=== PATIENT | male | born 1960 | race Caucasian/White ===

== ENCOUNTER 2018-08-27 09:36 | Outpatient (CLI) | payer MEDICARE, OTHER ==
[2018-08-27 10:27] LABS: BASOPHILS # (AUTO) 0.1 X10'3 (0-0.2); BASOPHILS % (AUTO) 0.7 % (0-1); EOSINOPHILS # (AUTO) 0.3 X10'3 (0-0.9); EOSINOPHILS % (AUTO) 3.8 % (0-6); HEMATOCRIT 44.3 % (42.0-52.0); HEMOGLOBIN 15.5 g/dl (14.0-17.9); LYMPHOCYTES # (AUTO) 2.4 X10'3 (1.1-4.8); LYMPHOCYTES % (AUTO) 32.1 % (21-51); MEAN CORPUSCULAR HEMOGLOBIN 31.4 PG (27.0-31.0); MEAN CORPUSCULAR VOLUME 89.7 FL (78-98); MEAN PLATELET VOLUME 8.3 FL (7.4-10.4); MONOCYTES # (AUTO) 0.6 X10'3 (0-0.9); MONOCYTES % (AUTO) 8.3 % (2-12); NEUTROPHILS % (AUTO) 55.1 % (42-75); PLATELET COUNT 298 X10'3 (140-440); RED BLOOD COUNT 4.93 X10'6 (4.70-6.10); RED CELL DISTRIBUTION WIDTH 12.5 % (11.5-14.5); WHITE BLOOD COUNT 7.4 X10'3 (4.5-11.0)
[2018-08-27 10:28] LABS: COLOR,URINE YELLOW (Yellow); GLUCOSE, URINE NEGATIVE (Neg); KETONES,URINE NEGATIVE (Neg); LEUKOCYTE ESTERASE ,URINE NEGATIVE (Neg); NITRITES, URINE NEGATIVE (Neg); OCCULT BLOOD,URINE NEGATIVE (Neg); PH,URINE 5.5 (4.8-8.0); PROTEIN,URINE NEGATIVE (Neg); UROBILINOGEN,URINE 0.2 E.U/dL (0.2-1.0)
[2018-08-27 10:40] LABS: CLARITY,URINE CLEAR (Clear)
[2018-08-27 10:41] LABS: UA COLLECTION TYPE CLN CATCH MIDSTREAM
[2018-08-27 10:46] LABS: ALANINE AMINOTRANSFERASE 33 U/L (12-78); ALBUMIN 3.5 G/DL (3.4-5.0); ALBUMIN/GLOBULIN RATIO 0.9 (1.1-1.5); ALKALINE PHOSPHATASE 74 IU/L (46-116); ANION GAP 7 (8-16); ASPARTATE AMINO TRANSFERASE 12 U/L (10-37); BILIRUBIN,TOTAL 0.6 MG/DL (0.1-1.0); BLOOD UREA NITROGEN 16 MG/DL (7-18); BUN/CREATININE RATIO 18.8 (5.4-32.0); CALCIUM 9.4 MG/DL (8.5-10.1); CHLORIDE 103 MMOL/L (99-107); CHOL/HDL RATIO 6.7 (0.00-4.99); CHOLESTEROL 236 MG/DL (0-200); CREATININE 0.85 MG/DL (0.60-1.10); GLUCOSE 95 MG/DL (70-104); HDL CHOLESTEROL 35 MG/DL (35-60); LDL CHOLESTEROL 158 MG/DL (50-100); POTASSIUM 3.7 MMOL/L (3.5-5.1); SODIUM 140 MMOL/L (135-145); TOTAL CARBON DIOXIDE 30.1 MMOL/L (24-32); TOTAL PROTEIN 7.5 G/DL (6.4-8.2); TRIGLYCERIDES 244 MG/DL (20-135); eGFR > 90 ML/MIN
== END 2018-08-27 23:59 | disposition home or self-care (01) ==
LOC: LAB 09:36
PROVIDERS: ATTEND Family Medicine
DX: R60.9 Edema, unspecified (principal); Z00.00 Encounter for general adult medical examination without abnormal findings; Z87.891 Personal history of nicotine dependence; E78.5 Hyperlipidemia, unspecified
CPT/HCPCS: 36415; 80053; 80061; 81003; 82306; 84439; 84443; 85025

== ENCOUNTER 2018-11-06 11:36 | Day surgery (SDC) | payer MEDICARE, OTHER ==
[2018-11-05 10:18] LABS: BASOPHILS % (AUTO) 0.6 % (0-1); EOSINOPHILS # (AUTO) 0.2 X10'3 (0-0.9); EOSINOPHILS % (AUTO) 3.7 % (0-6); HEMATOCRIT 43.3 % (42.0-52.0); HEMOGLOBIN 14.8 g/dl (14.0-17.9); LYMPHOCYTES # (AUTO) 2.2 X10'3 (1.1-4.8); LYMPHOCYTES % (AUTO) 33.9 % (21-51); MEAN CORPUSCULAR HEMOGLOBIN 30.5 PG (27.0-31.0); MEAN CORPUSCULAR HGB CONC 34.3 % (33.0-36.5); MONOCYTES # (AUTO) 0.6 X10'3 (0-0.9); MONOCYTES % (AUTO) 9.1 % (2-12); NEUTROPHILS # (AUTO) 3.4 X10'3 (1.8-7.7); NEUTROPHILS % (AUTO) 52.7 % (42-75); PLATELET COUNT 283 X10'3 (140-440); RED BLOOD COUNT 4.87 X10'6 (4.70-6.10); WHITE BLOOD COUNT 6.4 X10'3 (4.5-11.0)
[2018-11-05 10:28] LABS: ALBUMIN 3.5 G/DL (3.4-5.0); ANION GAP 6 (8-16); BLOOD UREA NITROGEN 10 MG/DL (7-18); BUN/CREATININE RATIO 12.5 (5.4-32.0); CALCIUM 9.8 MG/DL (8.5-10.1); CHLORIDE 104 MMOL/L (99-107); GLUCOSE 103 MG/DL (70-104); SODIUM 141 MMOL/L (135-145); TOTAL CARBON DIOXIDE 31.2 MMOL/L (24-32); eGFR > 90 ML/MIN
[2018-11-05 10:49] LABS: PARTIAL THROMBOPLASTIN TIME 25 SECONDS (22-32)
[2018-11-05 11:04] LABS: PROTHROMBIN TIME 9.9 SECONDS (9.0-12.0)
[~2018-11-06] VITALS: Ht 182.9 cm; Wt 159.7 kg
[2018-11-06] VITALS (15 sets, daily range): BP systolic 121–156; BP diastolic 71–102
[2018-11-06] MEDS ORDERED: LORazepam 0.5 MG tablet PO PRN (11:55)
[2018-11-06] MEDS ORDERED: diphenhydrAMINE 25mg capsule PO PRN (11:55)
[2018-11-06] MEDS ORDERED: ATOR20TA PO (12:07)
[2018-11-06] MEDS ORDERED: ZOLP5TAB8 PO (12:07)
[2018-11-06] MEDS ORDERED: FURO-150 PO (12:07)
[2018-11-06] MEDS: normal saline 1000ml 1,000 ML IV SCH ×3 (13:18→17:58)
[2018-11-06] MEDS ORDERED: LIDOcaine/PRILOcaine 5gm cream TP ONE (13:40)
[2018-11-06] MEDS ORDERED: nitroGLYCERIN-Tridil 50MG/D5W 250 ML IV ONE (13:57)
[2018-11-06] MEDS ORDERED: verapamil 2.5 mg/ml inj IV ONE (13:57)
[2018-11-06] MEDS ORDERED: LIDOcaine 1% (10mg/ml)w/preservative injection 20ml MDV ONE (13:58)
[2018-11-06] MEDS ORDERED: iohexol 350MG/ML 100ml bottle IV ONE (13:58)
[2018-11-06] MEDS ORDERED: fentaNYL/PF 50MCG/1 ML 2ML syringe ONE (13:58)
[2018-11-06] MEDS ORDERED: midazolam 2 mg/2 ml injection ONE (13:58)
[2018-11-06] MEDS ORDERED: iohexol 350 MG/ML 50ML vial IV ONE (13:58)
[2018-11-06] MEDS ORDERED: heparin 1,000unit/ml 10ml vial 10 ML ONE (13:58)
[2018-11-06] MEDS ORDERED: zolpidem 5mg tablet PO PRN (15:45)
[2018-11-06] MEDS ORDERED: HYDROcodone/acetaminophen 10/325mg tab PO PRN (16:10)
[2018-11-06 16:41] LABS: ISTAT HGB ART 12.9 g/dl (14.0-18.0); ISTAT Hct ART 38 %PCV (42-52); ISTAT O2 SATURATION ARTERIAL 94 % (95-98); ISTAT SOURCE ART
[2018-11-06 16:41] LABS: ISTAT Hct MIX 38 %PCV (42-52); ISTAT O2 SATURATION MIX VENOUS 68 % (60-80); ISTAT SOURCE MIX
[2018-11-06 17:28] LABS: CHOLESTEROL 179 MG/DL (0-200); CREATININE 0.75 MG/DL (0.60-1.10); HDL CHOLESTEROL 30 MG/DL (35-60); LDL CHOLESTEROL 117 MG/DL (50-100); TRIGLYCERIDES 172 MG/DL (20-135); eGFR > 90 ML/MIN
[2018-11-07 02:00] VITALS: BP 143/80
[2018-11-07 06:19] LABS: ALANINE AMINOTRANSFERASE 36 U/L (12-78); ALBUMIN/GLOBULIN RATIO 0.8 (1.1-1.5); ALKALINE PHOSPHATASE 77 IU/L (46-116); ANION GAP 8 (8-16); ASPARTATE AMINO TRANSFERASE 14 U/L (10-37); BILIRUBIN,TOTAL 0.5 MG/DL (0.1-1.0); BLOOD UREA NITROGEN 9 MG/DL (7-18); CALCIUM 8.9 MG/DL (8.5-10.1); CHLORIDE 105 MMOL/L (99-107); CREATININE 0.75 MG/DL (0.60-1.10); GLUCOSE 120 MG/DL (70-104); POTASSIUM 3.7 MMOL/L (3.5-5.1); SODIUM 142 MMOL/L (135-145); TOTAL CARBON DIOXIDE 28.9 MMOL/L (24-32); TOTAL PROTEIN 6.8 G/DL (6.4-8.2); eGFR > 90 ML/MIN
[2018-11-07 06:23] LABS: BASOPHILS % (AUTO) 0.3 % (0-1); EOSINOPHILS # (AUTO) 0.3 X10'3 (0-0.9); EOSINOPHILS % (AUTO) 3.4 % (0-6); HEMATOCRIT 40.1 % (42.0-52.0); HEMOGLOBIN 13.9 g/dl (14.0-17.9); LYMPHOCYTES # (AUTO) 1.8 X10'3 (1.1-4.8); LYMPHOCYTES % (AUTO) 21.7 % (21-51); MEAN CORPUSCULAR HEMOGLOBIN 30.8 PG (27.0-31.0); MEAN CORPUSCULAR HGB CONC 34.7 % (33.0-36.5); MEAN CORPUSCULAR VOLUME 88.7 FL (78-98); MEAN PLATELET VOLUME 8.1 FL (7.4-10.4); MONOCYTES # (AUTO) 0.7 X10'3 (0-0.9); MONOCYTES % (AUTO) 8.2 % (2-12); NEUTROPHILS # (AUTO) 5.5 X10'3 (1.8-7.7); NEUTROPHILS % (AUTO) 66.4 % (42-75); PLATELET COUNT 249 X10'3 (140-440); RED BLOOD COUNT 4.52 X10'6 (4.70-6.10); RED CELL DISTRIBUTION WIDTH 12.9 % (11.5-14.5); WHITE BLOOD COUNT 8.3 X10'3 (4.5-11.0)
[2018-11-07 07:00] VITALS: BP 151/84
[2018-11-07] MEDS ORDERED: atorvastatin 20mg tablet PO SCH (08:00)
[2018-11-07] MEDS ORDERED: furosemide 20MG tablet PO SCH (08:00)
[2018-11-07 11:00] VITALS: BP 138/88
== END 2018-11-07 12:05 | disposition home or self-care (01) ==
LOC: SSTAY O 11:36 → MED 3N 16:14 → SSTAY O 11-07 12:05
PROVIDERS: ATTEND Internal Medicine Cardiovascular Disease
DX: I25.110 Atherosclerotic heart disease of native coronary artery with unstable angina pectoris (principal); E78.5 Hyperlipidemia, unspecified; E66.01 Morbid (severe) obesity due to excess calories; Z87.891 Personal history of nicotine dependence; Z98.890 Other specified postprocedural states
CPT/HCPCS: 36415; 80048; 80053; 80061; 82565; 82803; 85014; 85025; 85610; 85730; 93005; 93460; 99152; 99153; A6257; J1644; J2001; J2250; J3010; J7030; Q0163; Q9967; A4620; C1769; G0378; J3490

== ENCOUNTER 2019-04-08 12:30 | Outpatient (CLI) | payer OTHER, MEDICARE ==
[~2019-04-08 12:30] MED LIST: ATOR20TA PO; FURO-150 PO; ZOLP5TAB8 PO
== END 2019-04-08 23:59 | disposition home or self-care (01) ==
LOC: RAD 12:30
PROVIDERS: ATTEND Family Medicine
DX: M25.461 Effusion, right knee (principal); M22.41 Chondromalacia patellae, right knee; M54.5 Low back pain; Z87.891 Personal history of nicotine dependence
CPT/HCPCS: 73721

== ENCOUNTER → 2020-12-12 | Outpatient (CLI) | payer BC, MEDICARE ==
[~2020-12-12] MED LIST changes: +HYDR-3964 PO; +ONDA4TAB6 PO
[2020-12-12 09:12] LABS: BASOPHILS % (AUTO) 0.7 % (0-1); EOSINOPHILS # (AUTO) 0.2 X10'3 (0-0.9); EOSINOPHILS % (AUTO) 3.1 % (0-6); HEMATOCRIT 43.5 % (42.0-52.0); HEMOGLOBIN 14.9 g/dl (14.0-17.9); LYMPHOCYTES # (AUTO) 2.3 X10'3 (1.1-4.8); MEAN CORPUSCULAR HEMOGLOBIN 30.9 PG (27.0-31.0); MEAN CORPUSCULAR HGB CONC 34.4 g/dL (33.0-36.5); MONOCYTES # (AUTO) 0.7 X10'3 (0-0.9); MONOCYTES % (AUTO) 10.4 % (2-12); NEUTROPHILS # (AUTO) 3.2 X10'3 (1.8-7.7); NEUTROPHILS % (AUTO) 49.8 % (42-75); PLATELET COUNT 258 X10'3 (140-440); RED BLOOD COUNT 4.83 X10'6 (4.70-6.10); RED CELL DISTRIBUTION WIDTH 12.9 % (11.5-14.5); WHITE BLOOD COUNT 6.4 X10'3 (4.5-11.0)
[2020-12-12 09:37] LABS: ALANINE AMINOTRANSFERASE 42 U/L (12-78); ALBUMIN 3.4 G/DL (3.4-5.0); ALBUMIN/GLOBULIN RATIO 0.9 (1.1-1.5); ALKALINE PHOSPHATASE 88 IU/L (46-116); ANION GAP 6 (8-16); ASPARTATE AMINO TRANSFERASE 15 U/L (10-37); BILIRUBIN,TOTAL 0.6 MG/DL (0.1-1.0); BLOOD UREA NITROGEN 12 MG/DL (7-18); CALCIUM 9.6 MG/DL (8.5-10.1); CHLORIDE 107 MMOL/L (99-107); CHOL/HDL RATIO 6.1 (0.00-4.99); CHOLESTEROL 226 MG/DL (0-200); GLUCOSE 101 MG/DL (70-104); HDL CHOLESTEROL 37 MG/DL (35-60); LDL CHOLESTEROL 150 MG/DL (50-100); POTASSIUM 3.8 MMOL/L (3.5-5.1); SODIUM 143 MMOL/L (135-145); TOTAL CARBON DIOXIDE 29.6 MMOL/L (24-32); TOTAL PROTEIN 7.4 G/DL (6.4-8.2); TRIGLYCERIDES 224 MG/DL (20-135); eGFR > 90 ML/MIN
== END | disposition home or self-care (01) ==
LOC: LAB 08:09
PROVIDERS: ATTEND Family Medicine
DX: E55.9 Vitamin D deficiency, unspecified (principal); E34.9 Endocrine disorder, unspecified; D64.9 Anemia, unspecified; R53.83 Other fatigue; R73.03 Prediabetes; E78.5 Hyperlipidemia, unspecified; E07.9 Disorder of thyroid, unspecified
CPT/HCPCS: 36415; 80053; 80061; 82306; 84153; 84402; 84403; 84439; 84443; 85025

== ENCOUNTER 2020-12-14 05:57 | Emergency (ER) | payer BC, MEDICARE ==
[~2020-12-14] VITALS: Ht 180.3 cm; Wt 159.1 kg
[~2020-12-14 05:57] MED LIST changes: -HYDR-3964 PO; -ONDA4TAB6 PO
[2020-12-14] MEDS ORDERED: HYDROcodone/acetaminophen 10/325mg tab PO ONE (07:00)
[2020-12-14] MEDS ORDERED: ondansetron 4mg rapidly disintigrating tab PO ONE (07:00)
--- NOTE | 2020-12-14 07:34 | NUR ---
dr. atkins at bedside performing right knee orthosentesis
--- NOTE | 2020-12-14 07:57 | NUR ---
CORRECTION: ARTHROCENTESIS
[2020-12-14 08:53] LABS: GLUCOSE,SYNOVIAL FLUID 102 MG/DL
[2020-12-14 08:57] VITALS: BP 111/56
[2020-12-14 09:32] LABS: APPEARANCE,SYNOVIAL FLUID BLOODY; COLOR,SYNOVIAL FLUID RED; LYMPHOCYTES,SYNOVIAL FLUID 1 % (0-75); NEUTROPHILS,SYNOVIAL FLUID 98 % (0-25); SYN RBC 535000 /CU MM (0); SYN WBC 5055 /CU MM (0-200)
[2020-12-14 09:41] LABS: SYNOVIAL FLUID CRYSTALS QT NO CRYSTALS SEEN
[2020-12-14] MEDS ORDERED: HYDR-3964 PO (12:24)
[2020-12-14] MEDS ORDERED: ONDA4TAB6 PO (12:24)
[2020-12-14] MEDS ORDERED: LIDOcaine 1% W/epiNEPHrine 1:200,000 10ml vial IJ ONE (22:50)
== END 2020-12-14 09:01 | disposition home or self-care (01) ==
LOC: ER 05:58
DX: S83.104A Unspecified dislocation of right knee, initial encounter (principal); M25.561 Pain in right knee; Z98.890 Other specified postprocedural states; Z79.899 Other long term (current) drug therapy; W01.0XXA Fall on same level from slipping, tripping and stumbling without subsequent striking against object, initial encounter; Y93.89 Activity, other specified; Y92.89 Other specified places as the place of occurrence of the external cause; Y99.8 Other external cause status
CPT/HCPCS: 20610; 73564; 82945; 84157; 87070; 87075; 89051; 89060; 99284

== ENCOUNTER 2020-12-22 09:39 | Outpatient (CLI) | payer BC, MEDICARE ==
[~2020-12-22 09:39] MED LIST changes: +HYDR-3964 PO; +ONDA4TAB6 PO
== END 2020-12-22 23:59 | disposition home or self-care (01) ==
LOC: RAD 09:39
PROVIDERS: ATTEND Family Medicine
DX: M71.21 Synovial cyst of popliteal space [Baker], right knee (principal); M17.11 Unilateral primary osteoarthritis, right knee; M25.461 Effusion, right knee; M65.88 Other synovitis and tenosynovitis, other site
CPT/HCPCS: 73721

== ENCOUNTER → 2021-04-09 | Outpatient (CLI) | payer BC, MEDICARE ==
[~2021-04-09] MED LIST changes: -HYDR-3964 PO
== END | disposition home or self-care (01) ==
LOC: RAD 10:36
PROVIDERS: ATTEND Family Medicine
DX: S83.242A Other tear of medial meniscus, current injury, left knee, initial encounter (principal); M25.462 Effusion, left knee; M71.22 Synovial cyst of popliteal space [Baker], left knee; M94.262 Chondromalacia, left knee; M17.12 Unilateral primary osteoarthritis, left knee; X58.XXXA Exposure to other specified factors, initial encounter; Y93.89 Activity, other specified; Y92.89 Other specified places as the place of occurrence of the external cause; Y99.8 Other external cause status
CPT/HCPCS: 73721

== ENCOUNTER 2022-08-22 08:10 | Outpatient (CLI) | payer BC, MEDICARE ==
[2022-08-22 08:45] LABS: BASOPHILS % (AUTO) 0.4 % (0-1); EOSINOPHILS # (AUTO) 0.1 X10'3 (0-0.9); EOSINOPHILS % (AUTO) 2.1 % (0-6); HEMATOCRIT 40.5 % (42.0-52.0); HEMOGLOBIN 14.3 g/dl (14.0-17.9); LYMPHOCYTES % (AUTO) 30.8 % (21-51); MEAN CORPUSCULAR HEMOGLOBIN 31.6 PG (27.0-31.0); MEAN CORPUSCULAR HGB CONC 35.4 g/dL (33.0-36.5); MEAN CORPUSCULAR VOLUME 89.3 FL (78-98); MEAN PLATELET VOLUME 7.9 FL (7.4-10.4); MONOCYTES # (AUTO) 0.6 X10'3 (0-0.9); MONOCYTES % (AUTO) 9.4 % (2-12); NEUTROPHILS # (AUTO) 3.8 X10'3 (1.8-7.7); NEUTROPHILS % (AUTO) 57.3 % (42-75); PLATELET COUNT 252 X10'3 (140-440); RED BLOOD COUNT 4.53 X10'6 (4.70-6.10); WHITE BLOOD COUNT 6.6 X10'3 (4.5-11.0)
[2022-08-22 09:12] LABS: ALANINE AMINOTRANSFERASE 25 U/L (12-78); ALBUMIN 3.7 G/DL (3.4-5.0); ALKALINE PHOSPHATASE 89 IU/L (46-116); ANION GAP 4 (8-16); ASPARTATE AMINO TRANSFERASE 10 U/L (10-37); BILIRUBIN,TOTAL 0.7 MG/DL (0.1-1.0); BLOOD UREA NITROGEN 12 MG/DL (7-18); BUN/CREATININE RATIO 15.8 (5.4-32.0); CALCIUM 10.1 MG/DL (8.5-10.1); CHLORIDE 108 MMOL/L (99-107); CHOL/HDL RATIO 4.6 (0.00-4.99); CHOLESTEROL 174 MG/DL (0-200); CREATININE 0.76 MG/DL (0.60-1.10); GLUCOSE 97 MG/DL (70-104); HDL CHOLESTEROL 38 MG/DL (35-60); LDL CHOLESTEROL 99 MG/DL (50-100); POTASSIUM 3.8 MMOL/L (3.5-5.1); SODIUM 143 MMOL/L (135-145); TOTAL PROTEIN 7.3 G/DL (6.4-8.2); TRIGLYCERIDES 191 MG/DL (20-135); eGFR > 90 ML/MIN
[2022-08-22 09:18] LABS: HEMOGLOBIN A1C 5.2 % (4.5-6.2)
[2022-08-23 12:35] LABS: APOLIPOPROTEIN B 104 mg/dL (<90); PSA, FREE 0.33 ng/mL
== END 2022-08-22 23:59 | disposition home or self-care (01) ==
LOC: LAB 08:10
PROVIDERS: ATTEND Nurse Practitioner
DX: Z00.01 Encounter for general adult medical examination with abnormal findings (principal); Z12.5 Encounter for screening for malignant neoplasm of prostate; Z12.11 Encounter for screening for malignant neoplasm of colon; Z00.00 Encounter for general adult medical examination without abnormal findings; G47.30 Sleep apnea, unspecified; M25.561 Pain in right knee; M25.562 Pain in left knee
CPT/HCPCS: 36415; 80053; 80061; 82172; 82306; 82607; 82746; 83036; 84153; 84154; 84402; 84403; 84439; 84443; 85025

== ENCOUNTER 2023-03-24 08:37 | Outpatient (CLI) | payer BC, MEDICARE ==
[2023-03-24 09:10] LABS: EOSINOPHILS # (AUTO) 0.2 X10'3 (0-0.9); MONOCYTES # (AUTO) 0.6 X10'3 (0-0.9)
[2023-03-24 09:11] LABS: CLARITY,URINE CLEAR (Clear); COLOR,URINE YELLOW (Yellow); GLUCOSE, URINE NEGATIVE (Neg); KETONES,URINE NEGATIVE (Neg); LEUKOCYTE ESTERASE ,URINE NEGATIVE (Neg); NITRITES, URINE NEGATIVE (Neg); OCCULT BLOOD,URINE NEGATIVE (Neg); PH,URINE 6.5 (4.8-8.0); PROTEIN,URINE NEGATIVE (Neg); UROBILINOGEN,URINE 0.2 E.U/dL (0.2-1.0)
[2023-03-24 09:15] LABS: UA COLLECTION TYPE CLN CATCH MIDSTREAM
[2023-03-24 09:17] LABS: BASOPHILS # (AUTO) 0.1 X10'3 (0-0.2); BASOPHILS % (AUTO) 0.9 % (0-1); HEMOGLOBIN 15.6 g/dl (14.0-17.9); NEUTROPHILS # (AUTO) 2.8 X10'3 (1.8-7.7)
[2023-03-24 09:19] LABS: ALANINE AMINOTRANSFERASE 28 U/L (12-78); ALBUMIN 3.9 G/DL (3.4-5.0); ALKALINE PHOSPHATASE 97 IU/L (46-116); ANION GAP 5 (8-16); ASPARTATE AMINO TRANSFERASE 11 U/L (10-37); BILIRUBIN,TOTAL 0.6 MG/DL (0.1-1.0); BLOOD UREA NITROGEN 11 MG/DL (7-18); BUN/CREATININE RATIO 15.3 (10.0-20.0); CALCIUM 10.4 MG/DL (8.5-10.1); CHLORIDE 106 MMOL/L (99-107); CREATININE 0.72 MG/DL (0.60-1.10); EOSINOPHILS % (AUTO) 3.4 % (0-6); GLUCOSE 107 MG/DL (70-104); HEMATOCRIT 44.8 % (42.0-52.0); LYMPHOCYTES # (AUTO) 2.3 X10'3 (1.1-4.8); LYMPHOCYTES % (AUTO) 38.9 % (21-51); MEAN CORPUSCULAR HEMOGLOBIN 31.4 PG (27.0-31.0); MEAN CORPUSCULAR HGB CONC 34.8 g/dL (33.0-36.5); MEAN CORPUSCULAR VOLUME 90.5 FL (78-98); MEAN PLATELET VOLUME 8.8 FL (7.4-10.4); MONOCYTES % (AUTO) 9.5 % (2-12); NEUTROPHILS % (AUTO) 47.3 % (42-75); PLATELET COUNT 259 X10'3 (140-440); POTASSIUM 4.2 MMOL/L (3.5-5.1); RED BLOOD COUNT 4.95 X10'6 (4.70-6.10); RED CELL DISTRIBUTION WIDTH 12.9 % (11.5-14.5); SODIUM 140 MMOL/L (135-145); TOTAL CARBON DIOXIDE 29.5 MMOL/L (24-32); TOTAL PROTEIN 7.7 G/DL (6.4-8.2); eGFR > 90 ML/MIN
[2023-03-24 09:29] LABS: CHOL/HDL RATIO 6.2 (0.00-4.99); CHOLESTEROL 237 MG/DL (0-200); HDL CHOLESTEROL 38 MG/DL (35-60); LDL CHOLESTEROL 136 MG/DL (50-100); TRIGLYCERIDES 215 MG/DL (20-135)
[2023-03-25 09:20] LABS: PSA, ULTRASENSITIVE W/O SERIAL 2.06 ng/mL (0.000-4.000); THYROXINE (T4) 6.8 ug/dL (4.5-12.0)
== END 2023-03-24 23:59 | disposition home or self-care (01) ==
LOC: LAB 08:37
PROVIDERS: ATTEND Nurse Practitioner
DX: Z00.00 Encounter for general adult medical examination without abnormal findings (principal)
CPT/HCPCS: 80053; 80061; 81003; 84153; 84436; 84439; 84443; 85025

== ENCOUNTER 2023-05-08 07:43 | Outpatient (CLI) | payer BC, MEDICARE ==
[~2023-05-08] VITALS: Ht 182.9 cm; Wt 150.1 kg
[2023-05-08] MEDS ORDERED: normal saline 500ml IV soln 500 ML IV ONE (08:40)
[2023-05-08] MEDS ORDERED: metoprolol tartrate 1mg/ml inj IV PRN (08:40)
[2023-05-08] MEDS ORDERED: aminophylline 250mg/10ml inj. IV PRN (08:40)
[2023-05-08] MEDS ORDERED: regadenoson 0.4mg/5ml syringe IV ONE (08:40)
[2023-05-08] MEDS ORDERED: nitroGLYCERIN 0.4mg SUBLingual tab SL PRN (08:40)
[2023-05-08 09:14] VITALS: BP 136/69
[2023-05-08 09:23] VITALS: BP 139/73
[2023-05-08 09:25] VITALS: BP 134/73
[2023-05-08 09:27] VITALS: BP 135/73
[2023-05-08 09:29] VITALS: BP 136/69
== END 2023-05-08 23:59 | disposition home or self-care (01) ==
LOC: CARD DIAG 07:43
PROVIDERS: ATTEND Internal Medicine Cardiovascular Disease
DX: I08.8 Other rheumatic multiple valve diseases (principal); R60.9 Edema, unspecified; R06.00 Dyspnea, unspecified; I25.10 Atherosclerotic heart disease of native coronary artery without angina pectoris; R06.02 Shortness of breath
CPT/HCPCS: 78452; 93017; 93306; A9500; J2785; J7040; J0280

== ENCOUNTER 2023-07-31 06:54 | Inpatient (IN) | payer BC, MEDICARE ==
[2023-07-24 15:59] LABS: BASOPHILS % (AUTO) 0.6 % (0-1); EOSINOPHILS # (AUTO) 0.2 X10'3 (0-0.9); EOSINOPHILS % (AUTO) 2.6 % (0-6); LYMPHOCYTES # (AUTO) 2.6 X10'3 (1.1-4.8); LYMPHOCYTES % (AUTO) 31.4 % (21-51); MEAN CORPUSCULAR HEMOGLOBIN 31.3 PG (27.0-31.0); MEAN CORPUSCULAR HGB CONC 34.9 g/dL (33.0-36.5); MEAN CORPUSCULAR VOLUME 89.6 FL (78-98); MEAN PLATELET VOLUME 8.3 FL (7.4-10.4); MONOCYTES # (AUTO) 0.8 X10'3 (0-0.9); MONOCYTES % (AUTO) 9.5 % (2-12); NEUTROPHILS # (AUTO) 4.6 X10'3 (1.8-7.7); NEUTROPHILS % (AUTO) 55.9 % (42-75); PRE OP HEMATOCRIT 41.3 % (42.0-52.0); PRE OP HEMOGLOBIN 14.4 g/dL (14.0-17.9); PRE OP PLATELET COUNT 244 X10'3 (140-440); PRE OP WHITE BLOOD COUNT 8.2 10'3 (4.8-10.8); RED BLOOD COUNT 4.61 X10'6 (4.70-6.10); RED CELL DISTRIBUTION WIDTH 12.8 % (11.5-14.5)
[2023-07-24 16:06] LABS: HEMOGLOBIN A1C 5.2 % (4.5-6.2)
[2023-07-24 16:10] LABS: ALBUMIN 3.6 G/DL (3.4-5.0); ALKALINE PHOSPHATASE 88 IU/L (46-116); BLOOD UREA NITROGEN 13 MG/DL (7-18); BUN/CREATININE RATIO 15.7 (10.0-20.0); CALCIUM 11.4 MG/DL (8.5-10.1); CHLORIDE 108 MMOL/L (99-107); CREATININE 0.83 MG/DL (0.60-1.10); PRE OP ALT 32 U/L (30-65); PRE OP ANION GAP 6 (8-16); PRE OP AST 14 U/L (10-37); PRE OP BILIRUB, TOTAL 0.6 MG/DL (0.0-1.0); PRE OP GLUCOSE 96 MG/DL (70-104); PRE OP POTASSIUM 3.6 MMOL/L (3.4-5.1); PRE OP SODIUM 142 MMOL/L (135-145); TOTAL CARBON DIOXIDE 28.1 MMOL/L (24-32); TOTAL PROTEIN 7.2 G/DL (6.4-8.2); eGFR > 90 ML/MIN
[2023-07-31] VITALS (17 sets, daily range): BP systolic 104–135; BP diastolic 54–84; PULSE 63–82; RESP 14–18; TEMP 97.9–98.8; O2SAT 91–100
[~2023-07-31] VITALS: Ht 180.3 cm; Wt 143.7 kg
[~2023-07-31 06:54] MED LIST changes: +ASPI-611 PO; +DOXY25TA58 PO; +HYDR-3972 PO; +MULT-1085 PO; +OMEG100037 PO; -ONDA4TAB6 PO; +SEMA1PEN3; -ZOLP5TAB8 PO; +ceFAZolin inj. 3,000 MG in normal saline 100ml IV soln 100 ML IV ONE; +famotidine 20mg tablet PO ONE; +ringers solution, lacted 1,000 ML IV SCH; +vancomycin 1,500 MG in NS 300ml IV soln IV ONE
[2023-07-31] MEDS ORDERED: cloNIDine hcl/PF 100mcg/ml inj ONE (09:42)
[2023-07-31] MEDS ORDERED: epiNEPHrine 1 mg/ml inj ONE (09:42)
[2023-07-31] MEDS ORDERED: ketorolac trometh. 30mg/ml inj. ONE (09:42)
[2023-07-31] MEDS ORDERED: vancomycin 1,000mg inj ONE (09:42)
[2023-07-31] MEDS ORDERED: ROPIVAcaine 0.5% (5mg/ml) 30ml vial ONE ×2 (09:42→11:09)
[2023-07-31] MEDS ORDERED: oxyCODONE IR 5mg (immed. release) tablet PO PRN (09:45)
[2023-07-31] MEDS ORDERED: HYDROmorphone inj. 0.5 MG/0.5 ML DISP.SYRIN IV PRN (09:45)
[2023-07-31] MEDS ORDERED: bisacodyl 10mg suppository rectal RC PRN (09:45)
[2023-07-31] MEDS ORDERED: acetaminophen 325mg tablet PO PRN (09:45)
[2023-07-31] MEDS ORDERED: naloxone 0.4 mg/ml inj IV PRN (09:45)
[2023-07-31] MEDS ORDERED: magnesium hydroxide 30ml (MOM) UD suspension PO PRN (09:45)
[2023-07-31] MEDS ORDERED: ondansetron/PF 4mg/2ml inj IV PRN ×2 (09:45→10:50)
[2023-07-31] MEDS ORDERED: diphenhydrAMINE 25mg capsule PO PRN ×2 (09:45)
[2023-07-31] MEDS ORDERED: MIDAZolam 1mg/ml 10ml vial ONE (09:49)
[2023-07-31] MEDS ORDERED: sevoflurane 250ml liquid IH ONE (09:49)
[2023-07-31] MEDS ORDERED: fentaNYL/PF 50MCG/1 ML 2ML syringe ONE ×2 (09:49→10:44)
[2023-07-31] MEDS ORDERED: propofol inj 20 ML IV ONE (09:50)
[2023-07-31] MEDS ORDERED: tranexamic acid inj. 1,000 MG in normal saline 100ml IV soln 90 ML IV ONE (10:00)
[2023-07-31] MEDS ORDERED: tranexamic acid 100mg/ml inj. ONE (10:19)
[2023-07-31] MEDS ORDERED: ROPIVAcaine 0.5% (5mg/ml) 30ml vial IJ ONE (10:40)
[2023-07-31] MEDS ORDERED: ROPIVAcaine 0.2% (10 MG/5 ML) BOLUS INJECTION ADDCANAL PRN (10:50)
[2023-07-31] MEDS ORDERED: proCHLORperazine 10 MG/2 ml inj IV PRN (10:50)
[2023-07-31] MEDS ORDERED: ringers solution, lacted 1,000 ML IV SCH (10:50)
[2023-07-31] MEDS ORDERED: morphine 4 MG/ML inj SYRINge IV PRN (10:50)
[2023-07-31] MEDS ORDERED: meperidine/PF 25mg/ml syringe IV PRN ×2 (10:50)
[2023-07-31] MEDS ORDERED: morphine 2 MG/ML inj. syringe IV PRN (10:50)
[2023-07-31] MEDS ORDERED: ROPIVAcaine 0.2%/PF PUMP/bolus 545 ML ADDCANAL SCH (10:50)
[2023-07-31] MEDS ORDERED: ketorolac trometh. 30mg/ml inj. IV ONE (10:54)
[2023-07-31] MEDS ORDERED: epiNEPHrine 1 mg/ml inj SQ ONE (10:55)
[2023-07-31] MEDS ORDERED: cloNIDine hcl/PF 100mcg/ml inj EP ONE (10:58)
[2023-07-31] MEDS: meperidine/PF 25mg/ml syringe IV PRN ×2 (11:55→12:23)
--- NOTE | 2023-07-31 11:55 | NUR ---
Received from OR via , accompanied by Anesthesiologist and report given by Anesthesiolgist. PATIENT WAKING UP, DENIES PAIN, V/S WNL, CSM INTACT, EDINSON DRESSING TO LEFT KNEE CDI WITH COLD PACK, SCD ON, 20G RUE , ON Q TO START AT 2ML/HR
--- NOTE | 2023-07-31 12:55 | NUR ---
Report called to receiving nurse JOSE RIGGINS. Transferred via [facility] B[facility] TO ROOM 4009A. BED IN LOW LOCKED POSITION WITH CALL LIGHT IN REACH. ON -Q HOOKED TO PT. PT HOOKED UP TO BEDSIDE VITALS MACHINE. GILSON GARCIA AT BEDSIDE. Addendum: 07/31/23 at 1305 by Mimi Donald RN, RN Amended: Links added.
[2023-07-31] MEDS: oxyCODONE IR 5mg (immed. release) tablet PO PRN ×2 (13:01→17:14)
[2023-07-31] MEDS: acetaminophen 325mg tablet PO SCH ×2 (13:25→20:27)
[2023-07-31] MEDS: gabapentin 300mg capsule PO SCH ×2 (13:25→20:26)
[2023-07-31] MEDS: HYDROmorphone 1 mg/ml syringe IV PRN (14:13)
[2023-07-31] MEDS ORDERED: NORMAL SALINE IV ONE (14:30)
[2023-07-31] MEDS ORDERED: TRANEXAMIC ACID IV ONE (14:30)
[2023-07-31] MEDS ORDERED: ceFAZolin/D5W- 1GM premix 50 ML IV SCH (16:00)
[2023-07-31] MEDS: NORMAL SALINE IV SCH (16:34)
[2023-07-31] MEDS: CEFAZOLIN IV SCH (16:34)
[2023-07-31] MEDS: potassium cl 20mEq in 1/2 NS 1,000 ML IV SCH ×2 (17:45→18:33)
--- NOTE | 2023-07-31 18:41 | NUR ---
Problems reprioritized. Patient report given, questions answered & plan of care reviewed with JERONIMO RIGGINS.
[2023-07-31] MEDS ORDERED: vancomycin/NS 1 GM ADD-VANTAGE 250 ML IV SCH (20:00)
[2023-07-31] MEDS ORDERED: VANCOmycin 2,000MG in NS 500ml IV soln IV ONE (20:00)
[2023-07-31] MEDS ORDERED: vancomycin/NS 1 GM ADD-VANTAGE 250 ML IV ONE (20:00)
[2023-07-31] MEDS: ascorbic acid 500mg tablet PO SCH (20:26)
[2023-07-31] MEDS ORDERED: sennosides 8.6mg tablet PO SCH (21:00)
[2023-08-01] MEDS: CEFAZOLIN IV SCH ×2 (00:09→08:38)
[2023-08-01] MEDS: NORMAL SALINE IV SCH ×2 (00:09→08:38)
[2023-08-01] MEDS: potassium cl 20mEq in 1/2 NS 1,000 ML IV SCH ×2 (01:45→04:55)
[2023-08-01 02:00] VITALS: BP 122/65; PULSE 68; RESP 15; TEMP 97.2; O2SAT 96
[2023-08-01] MEDS: acetaminophen 325mg tablet PO SCH ×2 (02:00→07:28)
[2023-08-01] MEDS: HYDROmorphone 1 mg/ml syringe IV PRN (02:29)
[2023-08-01] MEDS: oxyCODONE IR 5mg (immed. release) tablet PO PRN ×2 (04:51→09:40)
[2023-08-01 06:00] VITALS: BP 120/64; PULSE 73; RESP 16; TEMP 97.4; O2SAT 96
[2023-08-01 06:12] LABS: BASOPHILS % (AUTO) 0.3 % (0-1); EOSINOPHILS # (AUTO) 0.1 X10'3 (0-0.9); EOSINOPHILS % (AUTO) 0.9 % (0-6); HEMATOCRIT 38.3 % (42.0-52.0); HEMOGLOBIN 13.2 g/dl (14.0-17.9); LYMPHOCYTES % (AUTO) 22.1 % (21-51); MEAN CORPUSCULAR HEMOGLOBIN 31.2 PG (27.0-31.0); MEAN CORPUSCULAR HGB CONC 34.5 g/dL (33.0-36.5); MEAN CORPUSCULAR VOLUME 90.5 FL (78-98); MEAN PLATELET VOLUME 7.9 FL (7.4-10.4); MONOCYTES # (AUTO) 1.4 X10'3 (0-0.9); MONOCYTES % (AUTO) 14.9 % (2-12); NEUTROPHILS # (AUTO) 5.6 X10'3 (1.8-7.7); NEUTROPHILS % (AUTO) 61.8 % (42-75); PLATELET COUNT 208 X10'3 (140-440); RED BLOOD COUNT 4.23 X10'6 (4.70-6.10); RED CELL DISTRIBUTION WIDTH 13.1 % (11.5-14.5); WHITE BLOOD COUNT 9.1 X10'3 (4.5-11.0)
--- NOTE | 2023-08-01 06:30 | NUR ---
Problems reprioritized. Patient report given, questions answered & plan of care reviewed with GILSON GARCIA.
[2023-08-01 06:31] LABS: ANION GAP 6 (8-16); CHLORIDE 107 MMOL/L (99-107); POTASSIUM 3.8 MMOL/L (3.5-5.1); SODIUM 139 MMOL/L (135-145); TOTAL CARBON DIOXIDE 25.7 MMOL/L (24-32)
[2023-08-01] MEDS: ascorbic acid 500mg tablet PO SCH (07:29)
[2023-08-01] MEDS: gabapentin 300mg capsule PO SCH (07:29)
[2023-08-01] MEDS ORDERED: atorvastatin 20mg tablet PO SCH (08:00)
[2023-08-01] MEDS ORDERED: multivitamins, therapeutics tablet PO SCH (08:00)
[2023-08-01] MEDS ORDERED: furosemide 20MG tablet PO SCH (08:00)
[2023-08-01] MEDS ORDERED: aspirin 325mg tablet PO SCH (08:30)
[2023-08-01 10:00] VITALS: BP 135/64; PULSE 87; RESP 14; TEMP 98.3; O2SAT 94
--- NOTE | 2023-08-01 10:15 | NUR ---
spouse and son at bedside while going over discharge instructions. education provided by nurse on precautions, Onq and lidya device. patient left via wheelchair, wheeled out by staff. IV d/c
--- NOTE | 2023-08-01 13:12 | NUR ---
Joint Surgery Consult: Pt s/p L Knee arthroplasty this admit per EMR. Pt discharged prior to RD being available for bedside visit. Written protein education with RD contact information mailed to pt home address found in EMR. Will remain available. Addendum: 08/01/23 at 1313 by Jody Wallace Intern RD Amended: Links added. Addendum: 08/01/23 at [address] I have reviewed and agree with note by internal consultantZulma Carrington RD
[2023-08-01] MEDS ORDERED: celeCOXIB 100mg capsule PO SCH (20:00)
== END 2023-08-01 10:15 | disposition home or self-care (01) | DRG 470 ==
LOC: PAS 06:54 → PACU 09:47 → ORTHO 4S 12:55
PROVIDERS: ADMIT Orthopaedic Surgery; ATTEND Orthopaedic Surgery
PROC: 0SRD0J9 Replacement of Left Knee Joint with Synthetic Substitute, Cemented, Open Approach (ICD-10-PCS; principal; 2023-07-31 09:49)
DX: M17.12 Unilateral primary osteoarthritis, left knee (principal); M21.162 Varus deformity, not elsewhere classified, left knee
CPT/HCPCS: 36415; 71046; 73560; 80051; 80053; 82948; 83036; 85025; 86885; 86900; 86901; 87081; 97110; 97116; 97161; 97530; A4215; A7000; C1713; C1776; G0378; J0171; J0690; J0735; J1170; J1885; J2175; J2250; J2405; J2704; J2795; J3010; J3370; J3480; J3490; J7040; J7120

== ENCOUNTER 2023-10-30 06:58 | Inpatient (IN) | payer BC, MEDICARE ==
[2023-10-23 11:14] LABS: BILIRUBIN,URINE NEGATIVE (Neg); CLARITY,URINE SLIGHTLY CLOUDY (Clear); COLOR,URINE YELLOW (Yellow); GLUCOSE, URINE NEGATIVE (Neg); KETONES,URINE NEGATIVE (Neg); LEUKOCYTE ESTERASE ,URINE NEGATIVE (Neg); NITRITES, URINE NEGATIVE (Neg); OCCULT BLOOD,URINE SMALL (Neg); PH,URINE 6.5 (4.8-8.0); PROTEIN,URINE NEGATIVE (Neg); UROBILINOGEN,URINE 0.2 E.U/dL (0.2-1.0)
[2023-10-23 11:15] LABS: BASOPHILS % (AUTO) 0.4 % (0-1); EOSINOPHILS # (AUTO) 0.2 X10'3 (0-0.9); EOSINOPHILS % (AUTO) 2.7 % (0-6); LYMPHOCYTES # (AUTO) 2.4 X10'3 (1.1-4.8); LYMPHOCYTES % (AUTO) 36.2 % (21-51); MEAN CORPUSCULAR HEMOGLOBIN 30.9 PG (27.0-31.0); MEAN CORPUSCULAR HGB CONC 34.8 g/dL (33.0-36.5); MEAN CORPUSCULAR VOLUME 88.6 FL (78-98); MONOCYTES # (AUTO) 0.6 X10'3 (0-0.9); MONOCYTES % (AUTO) 9.5 % (2-12); NEUTROPHILS # (AUTO) 3.4 X10'3 (1.8-7.7); NEUTROPHILS % (AUTO) 51.2 % (42-75); PRE OP HEMATOCRIT 41.3 % (42.0-52.0); PRE OP HEMOGLOBIN 14.4 g/dL (14.0-17.9); PRE OP PLATELET COUNT 306 X10'3 (140-440); PRE OP WHITE BLOOD COUNT 6.6 10'3 (4.8-10.8); RED BLOOD COUNT 4.66 X10'6 (4.70-6.10)
[2023-10-23 11:23] LABS: UA COLLECTION TYPE VOIDED
[2023-10-23 11:40] LABS: SQUAMOUS EPITHELIAL CELL,UR MODERATE /LPF (FEW); TRANSITIONAL EPI CELLS,URINE FEW /HPF
[2023-10-23 11:49] LABS: ALBUMIN 3.8 G/DL (3.4-5.0); ALBUMIN/GLOBULIN RATIO 0.9 (1.1-1.5); ALKALINE PHOSPHATASE 102 IU/L (46-116); BLOOD UREA NITROGEN 10 MG/DL (7-18); CALCIUM 10.6 MG/DL (8.5-10.1); CHLORIDE 104 MMOL/L (99-107); CHOL/HDL RATIO 3.8 (0.00-4.99); CHOLESTEROL 142 MG/DL (0-200); CREATININE 0.91 MG/DL (0.60-1.10); FREE T4 (FREE THYROXINE) 0.96 NG/DL (0.73-1.40); HDL CHOLESTEROL 37 MG/DL (35-60); LDL CHOLESTEROL 75 MG/DL (50-100); PRE OP ALT 32 U/L (30-65); PRE OP ANION GAP 4 (8-16); PRE OP AST 16 U/L (10-37); PRE OP BILIRUB, TOTAL 0.6 MG/DL (0.0-1.0); PRE OP GLUCOSE 87 MG/DL (70-104); PRE OP POTASSIUM 3.9 MMOL/L (3.4-5.1); PRE OP SODIUM 137 MMOL/L (135-145); THYROID STIMULATING HORMONE 1.45 ulU/ml (0.34-4.50); TOTAL CARBON DIOXIDE 29.2 MMOL/L (24-32); TOTAL PROTEIN 7.9 G/DL (6.4-8.2); TRIGLYCERIDES 175 MG/DL (20-135); WBC,URINE 0-4 /HPF (0-4); eGFR 84 ML/MIN
[2023-10-23 11:50] LABS: BACTERIA,URINE FEW /HPF (Neg)
[2023-10-23 11:51] LABS: MUCUS STRANDS FEW /LPF (Neg)
[2023-10-23 11:54] LABS: RBC,URINE 20-50 /HPF (0-2)
[2023-10-23 11:59] LABS: CAL OXALATE CRYSTALS 1+ /HPF (NEGATIVE)
[2023-10-24 11:16] LABS: TESTOSTERONE, SERUM 105 ng/dL (264-916)
[2023-10-24 17:53] LABS: VITAMIN D, 1,25 DIHYDROXY 65.1 pg/mL (24.8-81.5)
[2023-10-29 08:59] LABS: TESTOSTERONE, FREE, DIRECT 3.6 pg/mL (6.6-18.1)
[2023-10-30] VITALS (22 sets, daily range): BP systolic 102–147; BP diastolic 54–73; PULSE 57–96; RESP 10–20; TEMP 97.5–98.7; O2SAT 90–99
[~2023-10-30] VITALS: Ht 177.8 cm; Wt 142.7 kg
[~2023-10-30 06:58] MED LIST changes: +CHOL100046 PO; +acetaminophen 325mg tablet PO ONE; -ceFAZolin inj. 3,000 MG in normal saline 100ml IV soln 100 ML IV ONE; +cefazolin 2gm/D5W 100mL 100 ML IV ONE; +celeCOXIB 100mg capsule PO ONE; +gabapentin 300mg capsule PO ONE; +metoclopramide 5 mg/ml inj IV ONE; +oxyCODONE SR 10mg (sust. release) tab -2 tabs (20mg) PO ONE; -ringers solution, lacted 1,000 ML IV SCH; +tranexamic acid inj. 1,000 MG in normal saline IV soln 100ML IV ONE
[2023-10-30] MEDS ORDERED: diphenhydrAMINE 25mg capsule PO PRN ×2 (07:10)
[2023-10-30] MEDS: potassium cl 20mEq in 1/2 NS 1,000 ML IV SCH ×3 (07:10→23:28)
[2023-10-30] MEDS ORDERED: ondansetron/PF 4mg/2ml inj IV PRN ×2 (07:10→11:40)
[2023-10-30] MEDS ORDERED: bisacodyl 10mg suppository rectal RC PRN (07:10)
[2023-10-30] MEDS ORDERED: acetaminophen 325mg tablet PO PRN (07:10)
[2023-10-30] MEDS ORDERED: naloxone 0.4 mg/ml inj IV PRN (07:10)
[2023-10-30] MEDS ORDERED: HYDROmorphone inj. 0.5 MG/0.5 ML DISP.SYRIN IV PRN (07:10)
[2023-10-30] MEDS ORDERED: magnesium hydroxide 30ml (MOM) UD suspension PO PRN (07:10)
[2023-10-30] MEDS ORDERED: HYDROcodone/acetaminophen 10/325mg tab PO PRN (07:10)
[2023-10-30] MEDS ORDERED: ceFAZolin/D5W- 1GM premix 50 ML IV SCH (08:00)
[2023-10-30] MEDS ORDERED: vancomycin 1,000mg inj ONE (09:23)
[2023-10-30] MEDS ORDERED: cloNIDine hcl/PF 100mcg/ml inj ONE (09:23)
[2023-10-30] MEDS ORDERED: ketorolac trometh. 30mg/ml inj. ONE (09:23)
[2023-10-30] MEDS ORDERED: epiNEPHrine 1 mg/ml inj ONE (09:23)
[2023-10-30] MEDS ORDERED: BUPIVACAINE/MELOXICAM 14 ML VIAL IL ONE ×2 (09:24→11:41)
[2023-10-30] MEDS ORDERED: ROPIVAcaine 0.5% (5mg/ml) 30ml vial ONE ×2 (09:24→11:49)
[2023-10-30] MEDS: ringers solution, lacted 1,000 ML IV SCH ×2 (09:29→15:53)
[2023-10-30] MEDS ORDERED: fentaNYL/PF 50MCG/1 ML 2ML syringe ONE (10:04)
[2023-10-30] MEDS ORDERED: MIDAZolam 1 MG/ML 5ML VIAL ONE (10:04)
[2023-10-30] MEDS ORDERED: propofol inj 20 ML IV ONE (10:05)
[2023-10-30] MEDS ORDERED: LIDOcaine 1%/PF 5ML 10 MG/ML VIAL ONE (10:05)
[2023-10-30] MEDS ORDERED: ceFAZolin 1000mg inj ONE (11:33)
[2023-10-30] MEDS ORDERED: morphine 2 MG/ML inj. syringe IV PRN (11:40)
[2023-10-30] MEDS ORDERED: proCHLORperazine 10 MG/2 ml inj IV PRN (11:40)
[2023-10-30] MEDS ORDERED: labetalol 20mg/4ml (5mg/ml) syringe IV PRN (11:40)
[2023-10-30] MEDS ORDERED: ROPIVAcaine 0.2%/PF PUMP/bolus 545 ML ADDCANAL SCH (11:40)
[2023-10-30] MEDS ORDERED: meperidine/PF 25mg/ml syringe IV PRN ×3 (11:40)
[2023-10-30] MEDS ORDERED: ringers solution, lacted 1,000 ML IV SCH (11:40)
[2023-10-30] MEDS ORDERED: morphine 4 MG/ML inj SYRINge IV PRN (11:40)
[2023-10-30] MEDS ORDERED: ROPIVAcaine 0.2% (10 MG/5 ML) BOLUS INJECTION ADDCANAL PRN (11:40)
[2023-10-30] MEDS ORDERED: enalaprilat dihydrate 2.5mg/2ml vial IV PRN (11:40)
[2023-10-30] MEDS ORDERED: ROPIVAcaine 0.5% (5mg/ml) 30ml vial IJ ONE (11:42)
[2023-10-30] MEDS ORDERED: epiNEPHrine 1 MG/ML 1 ml ampule **BRONCH ONLY SQ ONE (11:43)
[2023-10-30] MEDS ORDERED: cloNIDine hcl/PF 100mcg/ml inj EP ONE (11:44)
[2023-10-30] MEDS ORDERED: ketorolac trometh. 30mg/ml inj. IV ONE (11:44)
[2023-10-30] MEDS ORDERED: BUPIVAcaine/PF 7.5mg/ml (0.75%) 10ml vial ONE (11:49)
[2023-10-30] MEDS ORDERED: tranexamic acid inj. 1,500 MG in normal saline 100ml IV soln 85 ML IV ONE (15:00)
[2023-10-30] MEDS: HYDROcodone/acetaminophen 10/325mg tab PO PRN (16:05)
[2023-10-30] MEDS: HYDROmorphone 1 mg/ml syringe IV PRN ×2 (17:20→21:38)
[2023-10-30] MEDS: ceFAZolin inj. 3,000 MG in normal saline 100ml IV soln 100 ML IV SCH (17:25)
[2023-10-30] MEDS ORDERED: vancomycin inj 1,750 MG in normal saline 500ml IV soln 350 ML IV ONE (20:00)
[2023-10-30] MEDS: gabapentin 300mg capsule PO SCH (20:55)
[2023-10-30] MEDS: ascorbic acid 500mg tablet PO SCH (20:55)
[2023-10-30] MEDS: atorvastatin 20mg tablet PO SCH (20:55)
[2023-10-30] MEDS: sennosides 8.6mg tablet PO SCH (20:55)
[2023-10-31] MEDS: ceFAZolin inj. 3,000 MG in normal saline 100ml IV soln 100 ML IV SCH (00:07)
[2023-10-31] MEDS: HYDROmorphone 1 mg/ml syringe IV PRN ×3 (03:45→22:56)
[2023-10-31 06:00] VITALS: BP 120/66; PULSE 71; RESP 16; TEMP 97.4; O2SAT 93
[2023-10-31 06:41] LABS: BASOPHILS % (AUTO) 0.1 % (0-1); EOSINOPHILS % (AUTO) 0 % (0-6); HEMATOCRIT 33.7 % (42.0-52.0); HEMOGLOBIN 11.7 g/dl (14.0-17.9); LYMPHOCYTES # (AUTO) 1.6 X10'3 (1.1-4.8); LYMPHOCYTES % (AUTO) 11.2 % (21-51); MEAN CORPUSCULAR HEMOGLOBIN 30.4 PG (27.0-31.0); MEAN CORPUSCULAR HGB CONC 34.7 g/dL (33.0-36.5); MEAN CORPUSCULAR VOLUME 87.5 FL (78-98); MONOCYTES # (AUTO) 1.5 X10'3 (0-0.9); MONOCYTES % (AUTO) 10.3 % (2-12); NEUTROPHILS # (AUTO) 11.3 X10'3 (1.8-7.7); NEUTROPHILS % (AUTO) 78.4 % (42-75); PLATELET COUNT 252 X10'3 (140-440); RED BLOOD COUNT 3.85 X10'6 (4.70-6.10); RED CELL DISTRIBUTION WIDTH 13.1 % (11.5-14.5); WHITE BLOOD COUNT 14.5 X10'3 (4.5-11.0)
[2023-10-31 07:31] LABS: ANION GAP 8 (8-16); CHLORIDE 106 MMOL/L (99-107); POTASSIUM 4.1 MMOL/L (3.5-5.1); SODIUM 138 MMOL/L (135-145); TOTAL CARBON DIOXIDE 23.6 MMOL/L (24-32)
[2023-10-31] MEDS: aspirin 81mg, enteric-coated 1 TAB TABLET.DR PO SCH (08:00)
[2023-10-31] MEDS: multivitamins, therapeutics tablet PO SCH (08:27)
[2023-10-31] MEDS: gabapentin 300mg capsule PO SCH ×3 (08:27→20:01)
[2023-10-31] MEDS: ascorbic acid 500mg tablet PO SCH ×2 (08:27→20:01)
[2023-10-31] MEDS: furosemide 20MG tablet PO SCH (08:27)
[2023-10-31] MEDS: aspirin 325mg tablet PO SCH (08:27)
[2023-10-31 10:00] VITALS: BP 107/56; PULSE 81; RESP 15; TEMP 98.3; O2SAT 95
[2023-10-31] MEDS: potassium cl 20mEq in 1/2 NS 1,000 ML IV SCH ×3 (14:57→23:10)
[2023-10-31 15:15] VITALS: BP 122/66; PULSE 80; RESP 16; TEMP 97.1; O2SAT 96
[2023-10-31] MEDS: HYDROcodone/acetaminophen 10/325mg tab PO PRN ×2 (15:18→20:02)
[2023-10-31 18:00] VITALS: BP 139/68; PULSE 69; RESP 16; TEMP 98.2; O2SAT 95
[2023-10-31] MEDS: atorvastatin 20mg tablet PO SCH (20:01)
[2023-10-31] MEDS: celeCOXIB 100mg capsule PO SCH (20:02)
[2023-10-31] MEDS: sennosides 8.6mg tablet PO SCH (21:00)
[2023-10-31 22:00] VITALS: BP 120/63; PULSE 62; RESP 16; TEMP 97.5; O2SAT 94
[2023-11-01] MEDS: HYDROcodone/acetaminophen 10/325mg tab PO PRN ×3 (00:26→09:21)
[2023-11-01 06:00] VITALS: BP 147/74; PULSE 72; RESP 16; TEMP 97.4; O2SAT 95
[2023-11-01 06:56] LABS: BASOPHILS % (AUTO) 0.3 % (0-1); EOSINOPHILS # (AUTO) 0.3 X10'3 (0-0.9); EOSINOPHILS % (AUTO) 2.7 % (0-6); HEMATOCRIT 33.3 % (42.0-52.0); HEMOGLOBIN 11.6 g/dl (14.0-17.9); LYMPHOCYTES # (AUTO) 2.2 X10'3 (1.1-4.8); LYMPHOCYTES % (AUTO) 23.1 % (21-51); MEAN CORPUSCULAR HEMOGLOBIN 30.8 PG (27.0-31.0); MEAN CORPUSCULAR HGB CONC 34.9 g/dL (33.0-36.5); MEAN CORPUSCULAR VOLUME 88.2 FL (78-98); MEAN PLATELET VOLUME 8.2 FL (7.4-10.4); MONOCYTES # (AUTO) 1.5 X10'3 (0-0.9); MONOCYTES % (AUTO) 15.2 % (2-12); NEUTROPHILS # (AUTO) 5.7 X10'3 (1.8-7.7); NEUTROPHILS % (AUTO) 58.7 % (42-75); PLATELET COUNT 221 X10'3 (140-440); RED BLOOD COUNT 3.77 X10'6 (4.70-6.10); RED CELL DISTRIBUTION WIDTH 13.1 % (11.5-14.5); WHITE BLOOD COUNT 9.6 X10'3 (4.5-11.0)
[2023-11-01 07:00] VITALS: RESP 16; O2SAT 95
[2023-11-01 07:29] LABS: GIANT PLATELET FEW; LARGE PLATELETS FEW; PLATELET ESTIMATE NORMAL; TOTAL CELLS COUNTED 100
[2023-11-01] MEDS: aspirin 81mg, enteric-coated 1 TAB TABLET.DR PO SCH (08:12)
[2023-11-01] MEDS: aspirin 325mg tablet PO SCH (08:13)
[2023-11-01] MEDS: celeCOXIB 100mg capsule PO SCH (08:13)
[2023-11-01] MEDS: gabapentin 300mg capsule PO SCH ×2 (08:13→12:06)
[2023-11-01] MEDS: ascorbic acid 500mg tablet PO SCH (08:13)
[2023-11-01] MEDS: multivitamins, therapeutics tablet PO SCH (08:13)
[2023-11-01] MEDS: furosemide 20MG tablet PO SCH (08:13)
[2023-11-01] MEDS ORDERED: oxyCODONE/APAP 10/325mg tablet PO PRN (11:55)
[2023-11-01 12:00] VITALS: RESP 16
[2023-11-01 12:07] VITALS: RESP 20
== END 2023-11-01 14:43 | disposition home or self-care (01) | DRG 470 ==
LOC: PAS 06:58 → ORTHO 4S 07:10
PROVIDERS: ADMIT Orthopaedic Surgery; ATTEND Orthopaedic Surgery
PROC: 3E0T3BZ Introduction of Anesthetic Agent into Peripheral Nerves and Plexi, Percutaneous Approach (ICD-10-PCS; 2023-10-30)
PROC: 3E0T33Z Introduction of Anti-inflammatory into Peripheral Nerves and Plexi, Percutaneous Approach (ICD-10-PCS; 2023-10-30)
PROC: 0SRC0J9 Replacement of Right Knee Joint with Synthetic Substitute, Cemented, Open Approach (ICD-10-PCS; principal; 2023-10-30 09:57)
DX: M17.11 Unilateral primary osteoarthritis, right knee (principal)
CPT/HCPCS: 36415; 73560; 80051; 80053; 80061; 81001; 82652; 82948; 84402; 84403; 84439; 84443; 85007; 85025; 86885; 86900; 86901; 87081; 93005; 97110; 97116; 97161; 97530; A4215; A6258; A7000; C1713; C1776; G0378; J0171; J0690; J0735; J1170; J1885; J2250; J2704; J2765; J2795; J3010; J3370; J3480; J3490; J7040; J7120

== ENCOUNTER 2024-04-26 12:54 | Outpatient (CLI) | payer BC, MEDICARE ==
[~2024-04-26 12:54] MED LIST changes: -acetaminophen 325mg tablet PO ONE; -cefazolin 2gm/D5W 100mL 100 ML IV ONE; -celeCOXIB 100mg capsule PO ONE; -famotidine 20mg tablet PO ONE; -gabapentin 300mg capsule PO ONE; -metoclopramide 5 mg/ml inj IV ONE; -oxyCODONE SR 10mg (sust. release) tab -2 tabs (20mg) PO ONE; -tranexamic acid inj. 1,000 MG in normal saline IV soln 100ML IV ONE; -vancomycin 1,500 MG in NS 300ml IV soln IV ONE
[2024-04-28 13:02] LABS: PROSTATE SPECIFIC AG, SERUM 2.5 ng/mL (0.0-4.0); TESTOSTERONE, SERUM 840 ng/dL (264-916)
== END 2024-04-26 23:59 | disposition home or self-care (01) ==
LOC: LAB 12:54
PROVIDERS: ATTEND Family Medicine
DX: E29.1 Testicular hypofunction (principal)
CPT/HCPCS: 36415; 84153; 84154; 84402; 84403

== ENCOUNTER 2025-02-02 08:22 | Outpatient (CLI) | payer BC, MEDICARE ==
[2025-02-02 09:01] LABS: BASOPHILS % (AUTO) 0.4 % (0-1); EOSINOPHILS # (AUTO) 0.1 X10'3 (0-0.9); EOSINOPHILS % (AUTO) 2.6 % (0-6); HEMOGLOBIN 16.8 g/dl (14.0-17.9); LYMPHOCYTES # (AUTO) 1.9 X10'3 (1.1-4.8); LYMPHOCYTES % (AUTO) 35.2 % (21-51); MEAN CORPUSCULAR HEMOGLOBIN 31.8 PG (27.0-31.0); MEAN CORPUSCULAR HGB CONC 34.3 g/dL (33.0-36.5); MEAN CORPUSCULAR VOLUME 92.6 FL (78-98); MEAN PLATELET VOLUME 8.3 FL (7.4-10.4); MONOCYTES # (AUTO) 0.5 X10'3 (0-0.9); NEUTROPHILS # (AUTO) 2.8 X10'3 (1.8-7.7); NEUTROPHILS % (AUTO) 51.8 % (42-75); PLATELET COUNT 227 X10'3 (140-440); RED BLOOD COUNT 5.29 X10'6 (4.70-6.10); RED CELL DISTRIBUTION WIDTH 13.6 % (11.5-14.5); WHITE BLOOD COUNT 5.4 X10'3 (4.5-11.0)
[2025-02-02 09:29] LABS: ALANINE AMINOTRANSFERASE 32 U/L (12-78); ALBUMIN 3.7 G/DL (3.4-5.0); ALBUMIN/GLOBULIN RATIO 0.9 (1.1-1.5); ALKALINE PHOSPHATASE 77 IU/L (46-116); ANION GAP 3 (8-16); ASPARTATE AMINO TRANSFERASE 14 U/L (10-37); BILIRUBIN,TOTAL 1.1 MG/DL (0.1-1.0); BLOOD UREA NITROGEN 17 MG/DL (7-18); BUN/CREATININE RATIO 22.4 (10.0-20.0); CALCIUM 9.3 MG/DL (8.5-10.1); CHLORIDE 107 MMOL/L (99-107); CREATININE 0.76 MG/DL (0.60-1.10); GLUCOSE 95 MG/DL (70-104); SODIUM 139 MMOL/L (135-145); TOTAL CARBON DIOXIDE 28.7 MMOL/L (24-32); TOTAL PROTEIN 7.6 G/DL (6.4-8.2); eGFR > 90 ML/MIN
[2025-02-02 09:36] LABS: CHOL/HDL RATIO 4.6 (0.00-4.99); CHOLESTEROL 193 MG/DL (0-200); HDL CHOLESTEROL 42 MG/DL (35-60); LDL CHOLESTEROL 124 MG/DL (50-100); THYROID STIMULATING HORMONE 2.26 ulU/ml (0.34-4.50); TRIGLYCERIDES 146 MG/DL (20-135)
[2025-02-02 09:41] LABS: HEMOGLOBIN A1C 4.6 % (4.5-6.2)
[2025-02-04 05:17] LABS: TESTOSTERONE, SERUM 108 ng/dL (264-916)
== END 2025-02-02 23:59 | disposition home or self-care (01) ==
LOC: LAB 08:22
PROVIDERS: ATTEND Nurse Practitioner
DX: E78.5 Hyperlipidemia, unspecified (principal); R79.89 Other specified abnormal findings of blood chemistry
CPT/HCPCS: 36415; 80053; 80061; 83036; 84402; 84403; 84443; 85025